=== PATIENT | female | born 1950 | race Caucasian/White ===

== ENCOUNTER 2019-04-15 11:23 | Emergency (ER) | payer SELFPAY ==
[~2019-04-15] VITALS: Ht 154.9 cm; Wt 50.9 kg
[~2019-04-15 11:23] MED LIST: AMOX500C2 PO; IBUP-1541 PO
[2019-04-15 11:29] VITALS: BP 129/80; PULSE 119; RESP 20; Ht 154.9 cm; Wt 50.9 kg
[2019-04-15] MEDS ORDERED: ONDANSETRON (ODT) 4 MG TAB ODT STA (14:17)
[2019-04-15] MEDS ORDERED: HYDROCODONE/APAP (5/325) TAB PO ONE ×2 (14:30→17:30)
== END 2019-04-15 17:31 | disposition home or self-care (01) ==
LOC: FTE 11:23
DX: S02.31XA Fracture of orbital floor, right side, initial encounter for closed fracture (principal); S02.40DA Maxillary fracture, left side, initial encounter for closed fracture; S61.411A Laceration without foreign body of right hand, initial encounter; R51 Headache; V49.49XA Driver injured in collision with other motor vehicles in traffic accident, initial encounter
CPT/HCPCS: 70450; 70486; 71250; 72125; 72128; 72131